=== PATIENT | male | born 1985 ===

== ENCOUNTER 2018-07-02 01:07 | Observation (INO) ==
[2018-07-02] MEDS ORDERED: Ondansetron 4 MG/2 ML VIAL IVP PRN (02:39)
[2018-07-02] MEDS ORDERED: Caffeine/Sodium Benzoate 500 MG in 0.9 % Sodium Chloride 1,000 ML IV PRN (03:00)
[2018-07-02] MEDS: *HR* OxyCODONE Immed Rel 5 MG TABLET PO PRN ×3 (03:42→18:16)
[2018-07-02] MEDS: Ringers Solution, Lactated 1,000 ML IVC SCH ×2 (06:10→20:07)
[2018-07-02] MEDS ORDERED: CeFAZolin Syr 2,000MG/20 ML 2,000 MG/20 ML SYRINGE IVPB ONE (08:00)
[2018-07-02 08:29] LABS: Basophils % 0.3 %; Eosinophils # 0.1 K/mcL (0.0-0.6); Hematocrit 40.3 % (37.5-50.1); Hemoglobin 14.4 g/dL (12.9-16.9); Immature Granulocytes % 0.1 % (0-4); Lymphocytes # 2.2 K/mcL (0.6-4.6); Mean Corpuscular HGB Conc 35.7 g/dL (31.6-35.5); Mean Corpuscular Hemoglobin 31.6 pg (28.0-33.3); Mean Corpuscular Volume 88.6 fL (83.0-100.0); Mean Platelet Volume 9.7 fL (9.4-12.4); Monocytes # 0.5 K/mcL (0.0-1.3); Monocytes % 7.8 %; Neutrophils # 3.9 K/mcL (1.6-8.9); Platelet Count 172 K/mcL (140-400); Red Blood Count 4.55 M/mcL (4.19-5.50); Red Cell Distribution Width 11.1 % (11.5-14.5); Segmented Neutrophils % 57.8 %
[2018-07-02] MEDS: Gabapentin 400 MG CAPSULE PO SCH ×3 (08:39→20:24)
--- NOTE | 2018-07-02 08:47 | Orthopedic History & Physical ---
Date of Encounter: 07/02/18 Time of Encounter: 09:30 Assessment and Plan (1) Wound drainage Current visit: Yes Status: Acute (2) Headache Current visit: Yes Status: Acute Qualifiers: Headache type: unspecified Headache chronicity pattern: acute headache Intractability: intractable Qualified Code(s): R51 - Headache (3) Status post lumbar microdiscectomy Current visit: Yes Status: Acute History of Present Illness Chief complaint: headache, wound drainage HPI: Mr. Arndt is a 33 year old male presenting to [facility] with severe headache, blurred vision and wound drainage s/p Microdiscectomy L5-S1 left by Dr. Baker on 06/23/18 for lumbar disc herniation and lumbar radiculopathy. He developed what was deemed a spinal headache postoperatively which extended his stay inpatient. This resolved spontaneously after administration of caffeine IV on POD#3 and was discharged home with mild residual left lower extremity preoperative symptoms. He denies any recent falls or trauma. States came back suddenly as immediately postop and is now sensitive to sensory stimuli. Admits to increased pain to the LLE. On exam patient resting supine in bed with HOB elevated appx 30deg. Alert and oriented, converses easily and clearly. Cranial nerves grossly noted to be intact. Fires all upper and lower motor neurons as expected. Neurovascularly intact to all limbs. No weakness noted on exam Discussed with Dr. Baker Likely seroma formation with spinal headache NPO midnight Plan for closure of lumbar seroma 07/03 Minimize sensory input with keeping blinds closed, tv off, minimize loud noises. Patient verbalized understanding. Pain medication as needed Keep HOB no greater than 30deg elevation Frequent neuro checks Notify Dr. Baker of any sudden deviations in patient's symptoms Past Med Surg Social Fam HX - Past Medical History Medical history: asthma, other Additional medical history: lumbar disc herniation, lumbar radiculopathy. tobacco dependency. depression Psychiatric history: no psych history - Past Surgical History Additional surgical history: tubes placed in side as infant due to being premature - Social History Smoking Status: Current every day smoker Smokeless Tobacco Status: No Alcohol use: rarely Drug use: none - Family History Father Family Member Ethnicity: Non- Living Status: Still Living Hx Family Cardiac Disorders: No Hx Family Respiratory Disorders: No Hx Family Cancer: No Hx Family GI Disorders: No Hx Family Endocrine Disorder: No Hx Family Neuromuscular Disorders: No Hx Family Neurologic Disorders: No Hx Family HEENT Disorders: No Hx Family Autoimmune Disorders: No (psoriasis) Medications and Allergies RX: Gabapentin [Neurontin] 400 mg PO TID 06/23/18 [History] RX: Meloxicam 7.5 mg PO BID PRN 06/23/18 [History] Allergy/AdvReac Type Severity Reaction Status Date / Time shellfish derived Allergy Anaphylaxis Verified 06/23/18 09:26 All Systems Reviewed: The remainder of the systems were reviewed and are negative Physical Exam - Constitutional Vitals: Temp Pulse Resp BP Pulse Ox 98.3 F 74 16 136/85 99 07/02/18 06:45 07/02/18 06:45 07/02/18 06:45 07/02/18 06:45 07/02/18 06:45 Results - Labs Result Diagrams: 07/02/18 07:56 07/02/18 07:56 Labs: Abnormal lab results MCHC 35.7 g/dL (31.6-35.5) H 07/02/18 07:56 RDW 11.1 % (11.5-14.5) L 07/02/18 07:56 H & H 07/02/18 Range/Units 07:56 Hgb 14.4 (12.9-16.9) g/dL Hct 40.3 (37.5-50.1) % All other labs normal.
[2018-07-02 08:51] LABS: BUN/Creatinine Ratio 12 (6-26); Blood Urea Nitrogen 11 mg/dL (6-20); Calcium 8.8 mg/dL (8.6-10.3); Carbon Dioxide 27 mEq/L (23-29); Chloride 107 mEq/L (98-107); Glucose 91 mg/dL (70-105); Osmolality,Calculated 285 (280-300); Potassium 4.2 mEq/L (3.5-5.1); Sodium 138 mEq/L (136-145); eGFR For Non-African Americans > 60 (> 60)
--- NOTE | 2018-07-02 17:04 | Anesthesia Evaluation PreOp ---
Addendum entered and electronically signed by Brenda Kraus MD 07/03/18 14:57: Vital Signs Temp Pulse Resp BP Pulse Ox 07/03/18 12:38 98.2 F 73 16 101/59 97 07/03/18 10:30 119/78 07/03/18 08:07 98.1 F 67 16 98/63 95 07/03/18 06:25 98.6 F 74 16 104/68 97 07/03/18 03:58 98.6 F 66 17 100/66 96 07/02/18 22:59 98.5 F 64 16 112/74 98 07/02/18 18:40 98.6 F 84 16 101/62 97 07/02/18 17:30 98.2 F 84 16 126/70 99 Addendum entered and electronically signed by Mundo Poe DO 07/02/18 21:09: Patient Edentulous Original Note: Date of Encounter: 07/02/18 Time of Encounter: 17:01 - Past History Planned Operation: Closure Lumbar Seroma Cardiac History: Denies any Significant Hx Pulmonary History: Smoker, Pack/yr (1/2 ppd) AUDIO VISUAL TECH History: Denies Any Significant HX Other Medical History: Denies Any Significant HX Anesthesia History: No Prior Anesthetic Complications, Past Anesthesia (microdiscectomy L5-S1) Alcohol Use: rarely Drug use: none Medications and Allergies Gabapentin [Neurontin] 400 mg PO TID 06/23/18 [History] Meloxicam 7.5 mg PO BID PRN 06/23/18 [History] Allergy/AdvReac Type Severity Reaction Status Date / Time shellfish derived Allergy Anaphylaxis Verified 06/23/18 09:26 - Meds/Allergy Pre-op Review Medications Reviewed: Yes Allergies Reviewed: Yes Beta Blockers on Current Med List: No Anesthesia Results - Labs 07/02/18 07:56 07/02/18 07:56 Anesthesia Exam Vital Signs/O2 Sat, Most Current Temp Pulse Resp BP Pulse Ox 98.7 F 78 16 134/87 98 07/02/18 09:50 07/02/18 09:50 07/02/18 09:50 07/02/18 09:50 07/02/18 09:50 NPO (# of Hours): > 8 hrs Pain Scale: 0 Pain Scale Used: Numeric (1 - 10) - HEENT Pupil (Motor): Pupils equal, EOMI Mallampati: II Teeth: Normal Oral Opening: Greater than 3 - AUDIO VISUAL TECH LOC: Oriented AUDIO VISUAL TECH Motor: Normal RUE, Normal LUE, Normal RLE, Normal LLE, Normal Face AUDIO VISUAL TECH Sensory: Normal: RUE, LUE, RLE, LLE, Face - Cardiac Rhythm: Regular Murmur: None JVD: No Carotid Bruit: No - Pulmonary Breath Sounds: bilateral Clear Respiratory Effort: Symmetrical Anesthesia Assess/Plan ASA Score: 2 Level of consciousness: Cooperative Anesthetic Plan: General Autologous Blood: Yes Monitoring Plan: Standard Monitors Recovery Plan: PACU
[2018-07-03] MEDS: Ringers Solution, Lactated 1,000 ML IVC SCH (05:50)
[2018-07-03] MEDS: *HR* OxyCODONE Immed Rel 5 MG TABLET PO PRN ×2 (10:27→21:49)
[2018-07-03] MEDS: Gabapentin 400 MG CAPSULE PO SCH ×3 (10:27→21:49)
[2018-07-03] MEDS ORDERED: Bacitracin 50,000 UNIT, Polymyxin B Sulfate 500,000 UNIT, Sodium Chloride IRRigation 1,... IR ONE (17:30)
[2018-07-03] MEDS ORDERED: Vancomycin 1,000 MG VIAL ONE (18:10)
[2018-07-03] MEDS ORDERED: *HR* FentaNYL (PF) 100 MCG/2 ML VIAL ONE ×2 (18:25→19:08)
[2018-07-03] MEDS ORDERED: Dexamethasone 4 MG/ML VIAL ONE (18:25)
[2018-07-03] MEDS ORDERED: Lidocaine -MPF 2% 2 ML VIAL ONE (18:25)
[2018-07-03] MEDS ORDERED: *HR* Midazolam HCl 2 MG/2 ML VIAL ONE (18:25)
[2018-07-03] MEDS ORDERED: Ondansetron 4 MG/2 ML VIAL ONE (18:25)
[2018-07-03] MEDS ORDERED: *HR* Propofol 200 MG/20 ML VIAL IVP ONE (18:25)
[2018-07-03] MEDS ORDERED: *HR* Rocuronium Bromide 50 MG/5 ML VIAL ONE (18:25)
[2018-07-03] MEDS ORDERED: Lidocaine -MPF 4% 5 ML AMPUL ONE (18:29)
[2018-07-03] MEDS ORDERED: Neostigmine Methylsulfate 3 MG/3 ML SYRINGE ONE (19:13)
[2018-07-03] MEDS ORDERED: *HR* Promethazine 25 MG/ML VIAL IVP PRN (19:15)
[2018-07-03] MEDS ORDERED: *HR* HYDROmorphone (PF) 1 MG/ML SYRINGE IVP PRN (19:15)
[2018-07-03] MEDS ORDERED: Ondansetron 4 MG/2 ML VIAL IVP ONE (19:15)
[2018-07-03] MEDS ORDERED: *HR* OxyCODONE Immed Rel 5 MG TABLET PO PRN (19:15)
[2018-07-03] MEDS ORDERED: *HR* Labetalol 20 MG/4 ML SYRINGE IVP PRN (19:15)
--- NOTE | 2018-07-03 20:03 | Orthopedic Operative Note ---
Date of procedure: 07/03/18 Pre-op diagnosis: Lumbar wound seroma Post-op diagnosis: same Operation/Findings: Closure lumbar seroma: The patient was brought to the operative theater where he underwent general endotracheal anesthesia. He was given antibiotics prior to the start of the procedure. Compression boots and stockings were used for deep vein thrombosis prophylaxis. The patient was placed prone on a Henrry table. The back was prepped and draped in the usual sterile fashion. We exposed the midline incision that was previously utilized. There was a small amount of serous drainage in the subcutaneous area. This was evacuated with suction. We did not see an active CSF leak from the thecal sac. We placed DuraGen and DuraSeal over the exposed thecal sac and then closed the wound in a watertight closure in layers with 1 Vicryl for the fascia, 20 for the subcutaneous tissue, and interrupted 3-0 nylon sutures were used for skin. Sterile dressings were placed over the wound, the patient was turned supine in a hospital bed, and was extubated in the operative theater. All sponge needles and instrument counts were correct at the end of the procedure. The patient tolerated the procedure well without complications. Anesthesia: KALI Surgeon: Jeffry Baker Jr Was there an mailing machine assistant present: No Estimated blood loss (cc): 3 Specimen: None Condition: stable Disposition: PACU
--- NOTE | 2018-07-03 20:46 | Anesthesia Evaluation Post Op ---
Date of Encounter: 07/03/18 Time of Encounter: 20:45 - Vital Signs Vital Signs: Vital Signs/O2 Sat, Most Current Temp Pulse Resp BP Pulse Ox 97.7 F 58 14 114/70 98 07/03/18 20:45 07/03/18 20:45 07/03/18 20:45 07/03/18 20:45 07/03/18 20:45 - Lungs Lungs: Clear Ascult./Percussion - Airway Airway: Non-obstructed - Cardiovascular Regular Rate - Mental Status Mental Status: Alert & Oriented, Answers Appropriately - Pain Pain Scale: 0 Pain Scale used: Numeric (1 - 10) - Nausea Vomiting Nausea Vomiting: Not Present - Hydration Hydration: Ice chips, Has not voided - Discharge PostOp Status: Transfer Patient to floor
[2018-07-03] MEDS ORDERED: Ondansetron 4 MG/2 ML VIAL IVP PRN (20:59)
[2018-07-03] MEDS ORDERED: *HR* HYDROcodone/Acet 5/325 mg TABLET PO PRN (20:59)
[2018-07-03] MEDS ORDERED: Naloxone 0.4 MG/ML INJ IVP PRN (20:59)
[2018-07-03] MEDS ORDERED: Acetaminophen 325 MG TABLET PO PRN (20:59)
[2018-07-04] MEDS: *HR* OxyCODONE Immed Rel 5 MG TABLET PO PRN ×2 (07:53→23:09)
[2018-07-04] MEDS: Gabapentin 400 MG CAPSULE PO SCH ×3 (09:33→20:56)
--- NOTE | 2018-07-04 18:31 | Orthopedics Progress Note ---
Date of Encounter: 07/04/18 Time of Encounter: 09:00 - Assessment and Plan (1) Wound drainage Current Visit: Yes Status: Resolved (2) Headache Current Visit: Yes Status: Resolved Qualifiers: Headache type: unspecified Headache chronicity pattern: acute headache Intractability: intractable Qualified Code(s): R51 - Headache (3) Status post lumbar microdiscectomy Current Visit: Yes Status: Acute (4) Seroma after procedure Current Visit: Yes Status: Resolved Subjective Principal diagnosis: s/p lumbar surgery Interval history: Mr. Arndt is a 33 year old male Date of procedure: 07/03/18 Pre-op diagnosis: Lumbar wound seroma Post-op diagnosis: same Operation/Findings: Closure lumbar seroma The patient is without complaints. Vitals reviewed. Dressing is clean dry and intact. Neurovascularly intact with regard to bilateral lower extremities. Fires all upper and lower extremity motor groups. Assessment :stable. Plan mobilize ,continue analgesics, discharge planning - monitor patient through the day for improvement in function. Plan for discharge 07/05 Patient status discussed with Dr. Baker. Objective Vital signs: Vital Signs Temp Pulse Resp BP Pulse Ox 07/04/18 14:47 98.1 F 90 16 108/54 96 07/04/18 12:00 98.8 F 88 17 107/62 95 07/04/18 10:38 97.5 F L 102 16 122/84 94 07/04/18 08:26 98.2 F 84 14 106/62 99 07/04/18 08:15 98.4 F 82 16 112/68 96 07/04/18 05:03 98.0 F 86 15 107/69 99 07/04/18 01:10 80 16 108/69 95 07/04/18 00:10 79 16 105/69 94 07/03/18 23:10 81 16 106/64 95 07/03/18 22:40 79 16 111/73 97 07/03/18 22:10 76 16 113/70 97 07/03/18 21:55 79 16 127/85 99 07/03/18 21:40 97.2 F L 77 16 119/78 99 07/03/18 20:45 97.7 F 58 14 114/70 98 07/03/18 20:35 71 14 122/72 98 07/03/18 20:25 59 12 121/70 99 07/03/18 20:15 97.5 F L 57 18 119/71 100 Intake and Output 07/04/18 07/04/18 07/04/18 07:59 15:59 23:59 Intake Total 100 / 100 1080 / 1080 Output Total 2600 / 2600 550 / 550 Balance -2500 / -2500 530 / 530 Intake: IV Fluids 100 / 100 Ancef 2,000 MG In 0.9 % Sodium 100 / 100 Chloride 100 ML @ 200 mls/hr IVPB Q8HR STEVEN Rx#:[id number] Oral 1080 / 1080 Output: Urine 2600 / 2600 550 / 550 Other: Meal Lunch Percent of Meal Consumed 100% # Voids 2 - Labs CBC & BMP: 07/02/18 07:56 07/02/18 07:56 Labs: Abnormal lab results MCHC 35.7 g/dL (31.6-35.5) H 07/02/18 07:56 RDW 11.1 % (11.5-14.5) L 07/02/18 07:56 Consult Discharge Plan - Plan Referrals: Ruma Jones, ASSOCIATE PROF[employer] [Primary Care Provider] -
[2018-07-05] MEDS: Ringers Solution, Lactated 1,000 ML IVC SCH ×4 (01:03→03:23)
[2018-07-05 08:40] VITALS: BP 109/78
[2018-07-05] MEDS: Gabapentin 400 MG CAPSULE PO SCH (08:46)
--- NOTE | 2018-07-05 11:04 | Discharge Summary ---
- NOTES TO OUTPATIENT PROVIDER Notes to Outpatient Provider: Follow Up in spine Center in 2 weeks Date of Encounter: 07/05/18 Time of Encounter: 11:02 - Hospital Course Hospital course: Mr. Arndt is a 33 year old male who had lumbar wound drainage consistent with seroma and was admitted for definitive management. He had closure of his lumbar seroma. The patient had an uneventful postoperative course. Progressed from intravenous analgesic needs to oral analgesic needs only. Remained neurovascularly intact and mobilized satisfactorily. All intraoperative and/or postoperative radiographic studies were satisfactory. Patient is discharged with plan for rehabilitation and follow-up in 2 weeks post discharge on analgesic medication and patient's home medications. - Time Spent with Patient Total time spent providing and/or coordinating discharge services: - Discharge Medications Prescriptions: No Action Meloxicam 7.5 mg PO BID PRN PRN Reason: Pain Gabapentin [Neurontin] 400 mg PO TID Home Medications: Gabapentin [Neurontin] 400 mg PO TID 06/23/18 [History] Meloxicam 7.5 mg PO BID PRN 06/23/18 [History] Allergies/Adverse Reactions: Allergy/AdvReac Type Severity Reaction Status Date / Time shellfish derived Allergy Anaphylaxis Verified 06/23/18 09:26 Date of admission: 07/02/18 02:23 Primary care physician: Ruma Jones, Consults: 07/03/18 20:59 Consult to Nurse Navigator [CONS] Routine Comment: spine navigator Consult to Physical Therapy [CONS] Routine Comment: Evaluate, develop and implement POC Reason for Consult: Postoperative rehabilitation Does patient have active BEDREST order?: No Is patient medically & hemodynamically stable?: Yes Patient assessed for mobility or mobilized this visit?: No - Patient Status Disposition: Home, Self-Care Condition: Good Functional capacity at discharge: independent ambulation Overall status at discharge: patient is progressing back to baseline - Discharge Instructions Follow Up With: Ruma Jones CNP [Primary Care Provider] - - Diet and Activity Activity: as per physical therapy Diet: advance to your usual diet
== END 2018-07-05 13:46 | disposition home or self-care (01) ==
LOC: 3NENU
PROVIDERS: ADMIT Orthopaedic Surgery Orthopaedic Surgery of the Spine; ATTEND Orthopaedic Surgery Orthopaedic Surgery of the Spine

== ENCOUNTER 2018-07-21 02:08 | Inpatient (IN) ==
[2018-07-21] MEDS ORDERED: Naloxone 0.4 MG/ML INJ IVP PRN (05:14)
--- NOTE | 2018-07-21 05:15 | Internal Med History&Physical ---
<Martin Hill - Last Filed: 07/21/18 06:34> Date of Encounter: 07/21/18 Time of Encounter: 05:00 Internal Medicine - H&P: HPI Chief complaint: headache and back pain History of present illness: Mr. Arndt is a 33 year old male has performed by [facility] ED because postoperative complications. Most of the information was obtained from the packet sent from [facility]. He presented to the [facility] ED complaining of headache, nausea, back pain and pain down his legs. He was also having difficulty ambulating due to leg pain with decrease in sensation to bilateral legs (left more than right.) Patient denied any chest pain, shortness of breath, numbness or tingling, vomiting, bladder or bowel incontinence Prior to this admission, patient had presented to [facility] on 07/02/18 with symptoms of severe headache, blurred vision and wound drainage status post microdiscectomy of L5-S1 on 06/23/2018. The headache back then has resolved spontaneously after administration of caffeine IV on postoperative day 3, and was discharged home with residual low extremity preoperative symptoms. He was also found to have low seroma formation and underwent closure of lumbar seroma on 07/03 . Workup in the ED showed patient the white blood count 15.2,Neutrophils : 13, Monocytes 1.26. CRP: 17.4, Lactic acid initially was 2.1 but repeat was WNL, . Patient had normal electrolytes. CT abdominal /pelvis showed two collection in the lumbar surgical bed with concerns for abscess. He was given vancomycin and Zosyn in the ED. He received Dilaudid and Toradol in the ED for pain control and was sent to [facility] for further management Past Med Surg Social Fam HX - Past Medical History Medical history: asthma, other Additional medical history: lumbar disc herniation, lumbar radiculopathy. tobacco dependency. depression Psychiatric history: no psych history - Past Surgical History Surgical History: other Additional surgical history: tubes placed in side as infant due to being premature - Social History Smoking Status: Current every day smoker Smokeless Tobacco Status: No Alcohol use: rarely Drug use: none - Family History Father Family Member Ethnicity: Non- Living Status: Still Living Hx Family Cardiac Disorders: No Hx Family Respiratory Disorders: No Hx Family Cancer: No Hx Family GI Disorders: No Hx Family Endocrine Disorder: No Hx Family Neuromuscular Disorders: No Hx Family Neurologic Disorders: No Hx Family HEENT Disorders: No Hx Family Autoimmune Disorders: No (psoriasis) Internal Medicine - H&P: Meds Gabapentin [Neurontin] 400 mg PO TID 06/23/18 [History] Meloxicam 7.5 mg PO BID PRN 06/23/18 [History] Allergy/AdvReac Type Severity Reaction Status Date / Time shellfish derived Allergy Anaphylaxis Verified 06/23/18 09:26 All Systems PM: A 10-system review of systems was performed and is negative for pertinent findings except as documented above in the HPI. - Constitutional Constitutional: no fever(s) - EENT Eyes: photophobia, no change in vision Nose, mouth and throat: neck pain - Cardiovascular Cardiovascular ROS IM: no chest pain - Respiratory Respiratory: no dyspnea - Gastrointestinal Gastrointestinal: no abdominal pain - Musculoskeletal Musculoskeletal ROS IM: back pain - Constitutional Vitals: Temp Pulse Resp BP Pulse Ox 99.6 F 98 12 105/65 96 07/21/18 04:04 07/21/18 04:04 07/21/18 04:04 07/21/18 04:04 07/21/18 04:04 Exam: Gen.: Vitals noted. In distress. Alert, awake and oriented * 3 [address], place, and time, HEENT: oropharynx clear, Normocephalic, atraumatic, MMM Neck: tender to palpation, no JVD, no lymphadenopathy, no carotid bruit. Cardiac: RRR, no murmur, +S1/S2, No BLE edema, PMI non-displaced Pulmonary: CTA bilaterally, no wheezes, rales or rhonchi, equal chest expansion, unlabored breathing Abdomen: soft, nontender, BS noted, no guarding, mildly distended. No organomegaly, no pulsatile masses, Skin: warm, non-tender, drainage from surgical wound on the back MSK: Not able to assess his range of motion because of back and neck pain Neuro: decreased sensation to lower extremities Psych: could not assess mentation because patient was somnolent. - Assessment and Plan (1) Meningitis Current Visit: Yes Status: Acute Assessment and plan: -Secondary to postoperative complications. Patient recently underwent lumbar wound drainage consistent with seroma and had closure of his lumbar seroma. - Prior to that, patient underwent microdiscectomy L5-S1 by Dr. Baker on 06/23/18. -Patient presented to the [facility] ED complaining of headache, nausea, back pain and pain down his legs. - CT abdominal pelvis with contrast showed two collections lumbar surgical bed with concerns for abscess. -on physical exam patient was tender to flexion and lateral recumbent position. Patient was not able to co-operate with the Kernig and Brudzinski test . -Patient received vancomycin and Zosyn in the ED at [facility]. He also received the Dilaudid and Toradol for pain control. PLAN: - 10mg q6h dexamethasone , IV vancomycin, Ceftraoxone and Acyclovir - q4 h neuro checks , droplet precautions -Consult to Neurology for potential LP (2) History of recent surgery Current Visit: Yes Status: Acute Assessment and plan: -Patient underwent microdiscectomy L5-S1 by Dr. Baker on 06/23/18 -Patient recently underwent lumbar wound drainage consistent with seroma and had closure of his lumbar seroma. -Dr. Baker has been updated about his condition. (3) Nausea & vomiting Current Visit: Yes Status: Acute Assessment and plan: Patient presented to the ED with complaints of nausea and vomiting. Currently on Zofran 4mg IVP PRN (QTc : 373 on most recent EKG) Qualifiers: Qualified Code(s): R11.2 - Nausea with vomiting, unspecified (4) Nicotine dependence Current Visit: Yes Status: Acute Assessment and plan: Hx of nicotine use On nicotine patch PRN Qualifiers: Qualified Code(s): F17.200 - Nicotine dependence, unspecified, uncomplicated (5) DVT prophylaxis Current Visit: Yes Status: Acute Assessment and plan: epcds - Time Spent With Patient Total time spent is greater than 50% in coordination of care (as documented) at patient's floor/unit and/or counseling patient: <Bimal Mao - Last Filed: 07/21/18 08:09> Date of Encounter: 07/21/18 Internal Medicine - H&P: HPI History of present illness: Mr. Arndt is a 33 year old male All Systems PM: A 10-system review of systems was performed and is negative for pertinent findings except as documented above in the HPI. - Constitutional Vitals: Temp Pulse Resp BP Pulse Ox 100.0 F H 107 20 120/69 96 07/21/18 06:40 07/21/18 06:40 07/21/18 06:40 07/21/18 06:40 07/21/18 06:40 Internal Med - H&P Results - Labs CBC & Chem 7: 07/21/18 06:31 07/21/18 06:31 Labs: Short CBC 07/21/18 Range/Units 06:31 WBC 18.5 H (4.3-11.1) K/mcL Hgb 14.4 (12.9-16.9) g/dL Hct 40.5 (37.5-50.1) % Plt Count 165 (140-400) K/mcL BMP 07/21/18 06:31 Sodium 131 L Potassium 3.8 Chloride 99 Carbon Dioxide 23 BUN 13 Creatinine 1.06 Glucose 218 H Calcium 9.1 Liver Function 07/21/18 Range/Units 06:31 Total Bilirubin 1.4 H (0.3-1.0) mg/dL AST 10 L (13-39) Units/L ALT 8 (7-52) Units/L Alkaline Phosphatase 66 (34-104) Units/L Albumin 4.1 (3.5-5.7) g/dL - Time Spent With Patient Total time spent is greater than 50% in coordination of care (as documented) at patient's floor/unit and/or counseling patient: - Attending Attestation I was present with resident during the history and exam. I discussed the case with the resident and agree with the findings and plan as documented in the residents note. Patient seen on 07/21/18. concern for meningitis. Patient had rec ent surgery on spine. Presents with photophobia and nucal rigidity. Dr. Doshi called by ER prior to transfer, will see in the morning. Patient would likely benefit from LP, neurology consulted as well. Follow up recommendations. Antibiotics, antivirals and steroids started. Will continue to monitor closely.
[2018-07-21] MEDS: Acyclovir 750 MG in D5% in Water 250 ML IVPB SCH ×2 (05:26→14:39)
[2018-07-21] MEDS: Dexamethasone 10 MG/ML VIAL IVP SCH ×3 (05:35→18:32)
[2018-07-21] MEDS ORDERED: Nicotine 21 MG PATCH.TD24 TD PRN (06:10)
[2018-07-21 07:12] LABS: Hematocrit 40.5 % (37.5-50.1); Hemoglobin 14.4 g/dL (12.9-16.9); Mean Corpuscular HGB Conc 35.6 g/dL (31.6-35.5); Mean Corpuscular Hemoglobin 31.1 pg (28.0-33.3); Mean Corpuscular Volume 87.5 fL (83.0-100.0); Mean Platelet Volume 10.5 fL (9.4-12.4); Platelet Count 165 K/mcL (140-400); Red Blood Count 4.63 M/mcL (4.19-5.50); Red Cell Distribution Width 11.1 % (11.5-14.5)
[2018-07-21 07:14] LABS: INR 1.4; Prothrombin Time 15.9 Seconds (9.4-12.1)
[2018-07-21 07:22] LABS: Alanine Aminotransferase 8 Units/L (7-52); Albumin 4.1 g/dL (3.5-5.7); Albumin/Globulin Ratio 1.5 (1.1-2.2); Alkaline Phosphatase 66 Units/L (34-104); Aspartate Amino Transferase 10 Units/L (13-39); BUN/Creatinine Ratio 12 (6-26); Bilirubin,Total 1.4 mg/dL (0.3-1.0); Blood Urea Nitrogen 13 mg/dL (6-20); Calcium 9.1 mg/dL (8.6-10.3); Carbon Dioxide 23 mEq/L (23-29); Chloride 99 mEq/L (98-107); Globulin 2.7 g/dL (2.4-3.5); Glucose 218 mg/dL (70-105); Magnesium 1.7 mg/dL (1.6-2.6); Osmolality,Calculated 279 (280-300); Phosphorous 1.9 mg/dL (2.7-4.5); Potassium 3.8 mEq/L (3.5-5.1); Sodium 131 mEq/L (136-145); Total Protein 6.8 g/dL (6.4-8.9); eGFR For Non-African Americans > 60 (> 60)
--- NOTE | 2018-07-21 08:19 | Orthopedic Consult Note ---
Date of Encounter: 07/21/18 Time of Encounter: 08:45 Assessment and Plan (1) Wound drainage Current Visit: Yes Status: Acute (2) Headache Current Visit: Yes Status: Acute Qualifiers: Headache type: unspecified Headache chronicity pattern: acute headache Intractability: intractable Qualified Code(s): R51 - Headache (3) History of recent surgery Current Visit: Yes Status: Acute (4) Nausea & vomiting Current Visit: Yes Status: Acute Qualifiers: Vomiting type: unspecified Vomiting Intractability: unspecified Qualified Code(s): R11.2 - Nausea with vomiting, unspecified (5) Nicotine dependence Current Visit: Yes Status: Chronic Qualifiers: Nicotine product type: unspecified Substance use status: unspecified nicotine-induced disorder Qualified Code(s): F17.209 - Nicotine dependence, unspecified, with unspecified nicotine-induced disorders (6) Status post lumbar microdiscectomy Current Visit: No Status: Acute (7) Lumbar radiculopathy Current Visit: No Status: Chronic History of Present Illness Chief complaint: headache, back pain HPI: Mr. Arndt is a 33 year old male presenting for severely worsening headache and general feeling of unwell. Patient is s/p microdiscectomy L5-S1 on 06/23. Patient developed spinal headache which resolved on POD#3 after caffeine adminstration. Patient then developed return of symptoms and found to have seroma and was admitted on 07/02 and underw ent lumbar closure 07/[address] Baker. Patient had been doing very well and presented to outpatient follow up on 07/15 with appropriate wound healing and removal of sutures. Patient again began experiencing headache on 07/[address] Baker. Patient presented to [facility] ED on 07/20 and was transferred to [facility] for management. Patient was noted to have elevated WBC count at [facility]. Patient c/o severe headache, nausea, severe back pain, paresthesias to LLE rapidly worsening per patient. Patient now noted to have tachypnea, tachycardia, fever, and leukocytosis. Patient seen at bedside. Lights noted to be off. Patient noted to be right side decubitus position with arms surrounding and clutching head and belching. Patient slow to respond with speech. Oriented x 3 however noted to be moaning and again, slow to respond to questioning. This is a significant departure from previous presentations. Patient with no calf tenderness bilaterally. Neurovascularly intact all extremities. Incision inspected with bloody and suppurative drainage. Erythema surrounding mid incision with warmth and exquisite tenderness about the mid incision. Discussed with Dr. Baker. Significant concern for infectious origin with possible CSF involvement given patient's severe headache and sensory sensitivity to light and sound. Incision very concerning given CT findings of lumbar fluid collections. Discussed possible LP vs IR aspiration for evaluation, however, with patient's rapidly worsening clinical picture and increasing leukocytosis foremost concern for CSF/meningeal involvement. As neurosurgery services not presently available at [facility], Dr. Baker recommending transfer to [facility] for management with Neurosurgery involvement. Dr. Duckworth's resident, Dr. Roberson, as well as, Sara Medeiros CNP infectious disease, and Negro Akhtar CNP Neurology updated with Dr. Baker's recommendation and Dr. Duckworth states proceeding with transfer orders. Past Med Surg Social Fam HX - Past Medical History Medical history: asthma, other Additional medical history: lumbar disc herniation, lumbar radiculopathy. 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 depression Psychiatric history: no psych history - Past Surgical History Surgical History: other Additional surgical history: tubes placed in side as infant due to being premature - Social History Smoking Status: Current every day smoker Smokeless Tobacco Status: No Alcohol use: rarely Drug use: none - Family History Father Family Member Ethnicity: Non- Living Status: Still Living Hx Family Cardiac Disorders: No Hx Family Respiratory Disorders: No Hx Family Cancer: No Hx Family GI Disorders: No Hx Family Endocrine Disorder: No Hx Family Neuromuscular Disorders: No Hx Family Neurologic Disorders: No Hx Family HEENT Disorders: No Hx Family Autoimmune Disorders: No (psoriasis) Medications and Allergies Gabapentin [Neurontin] 400 mg PO TID 06/23/18 [History] Meloxicam 7.5 mg PO BID PRN 06/23/18 [History] Allergy/AdvReac Type Severity Reaction Status Date / Time shellfish derived Allergy Anaphylaxis Verified 06/23/18 09:26 All Systems Reviewed: The remainder of the systems were reviewed and are negative Physical Exam - Constitutional Vitals: Temp Pulse Resp BP Pulse Ox 100.0 F H 107 20 120/69 96 07/21/18 06:40 07/21/18 06:40 07/21/18 06:40 07/21/18 06:40 07/21/18 06:40 Results - Labs Result Diagrams: 07/21/18 06:31 07/21/18 06:31 Labs: Abnormal lab results WBC 18.5 K/mcL (4.3-11.1) H 07/21/18 06:31 MCHC 35.6 g/dL (31.6-35.5) H 07/21/18 06:31 RDW 11.1 % (11.5-14.5) L 07/21/18 06:31 PT 15.9 Seconds (9.4-12.1) H 07/21/18 06:31 Sodium 131 mEq/L (136-145) L 07/21/18 06:31 Glucose 218 mg/dL (70-105) H 07/21/18 06:31 279 (280-300) L 07/21/18 06:31 Phosphorus 1.9 mg/dL (2.7-4.5) L 07/21/18 06:31 1.4 mg/dL (0.3-1.0) H 07/21/18 06:31 AST 10 Units/L (13-39) L 07/21/18 06:31 H & H 07/21/18 Range/Units 06:31 Hgb 14.4 (12.9-16.9) g/dL Hct 40.5 (37.5-50.1) % All other labs normal. Consult Discharge Plan - Plan Referrals: Ruma Jones CNP [Primary Care Provider] -
[2018-07-21] MEDS: cefTRIAXone 2,000 MG in Water for inj. (sterile) 20 ML 20 ML IVP SCH ×2 (08:44→20:15)
[2018-07-21 09:30] LABS: Basophils % 0.2 %; Immature Granulocytes % 0.7 % (0-4); Lymphocytes # 0.4 K/mcL (0.6-4.6); Lymphocytes % 2.3 %; Monocytes # 1.1 K/mcL (0.0-1.3); Monocytes % 5.9 %; Segmented Neutrophils % 90.9 %
[2018-07-21] MEDS ORDERED: Ketorolac 30 MG/ML VIAL IVP ONE ×2 (09:36→18:28)
[2018-07-21] MEDS ORDERED: *HR* Promethazine 25 MG/ML VIAL IVP ONE (09:37)
--- NOTE | 2018-07-21 09:37 | Electrocardiograph Report ---
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
--- NOTE | 2018-07-21 09:53 | Discharge Summary ---
<Jaya Roberson - Last Filed: 07/21/18 09:51> Date of Encounter: 07/21/18 Time of Encounter: 09:35 - Discharge Diagnosis (1) Meningitis Priority: Primary Status: Acute (2) History of recent surgery Priority: Secondary Status: Acute (3) Nausea & vomiting Priority: Secondary Status: Acute Qualifiers: Qualified Code(s): R11.2 - Nausea with vomiting, unspecified Hospital course: Mr. Arndt is a 33 year old male with recent history of L5-S1 microdiscectomy on 06/23/18 complicated by lumbar seroma with decompression on 07/04/18 who presented to [facility] ED with headache, nausea, severe back pain running down his legs in the late evening yesterday and was subsequently transferred to [facility] for admission. There is immediate concern for postsurgical meningitis as a complication of surgery. The patient was noted to have purulent drainage and met sepsis criteria with elevated white count, as well as fever, tachycardia and tachypnea. Neurology was consulted for LP which is pending. He was immediately started on broad spectrum antibiotics, antivirals and dexamethasone. Orthopedic surgery was consulted and Dr. Baker recommended that the patient be transferred to [facility] for consultation with neurolo gical surgery. This was discussed with the patient and he agreed to be transferred at this time. Accepting physician pending. Discharge discussed with: patient, nurse, presales consultant - Time Spent with Patient Total time spent providing and/or coordinating discharge services: Time spent: Greater than 30 minutes - Discharge Medications Prescriptions: Continued Meloxicam 7.5 mg PO BID PRN PRN Reason: Pain Gabapentin [Neurontin] 400 mg PO TID Home Medications: Gabapentin [Neurontin] 400 mg PO TID 06/23/18 [History] Meloxicam 7.5 mg PO BID PRN 06/23/18 [History] Allergies/Adverse Reactions: Allergy/AdvReac Type Severity Reaction Status Date / Time shellfish derived Allergy Anaphylaxis Verified 06/23/18 09:26 Date of admission: 07/21/18 03:44 Primary care physician: Ruma Jones, Consults: 07/21/18 05:21 Consult to Neurology [CONS] Routine Consulting Provider: Neurology [facility] Reason for Consult: meninigitis Call Completed: No 07/21/18 06:09 Consult to Orthopedic Surgery [CONS] Routine Consulting Provider: Jeffry Baker Jr Reason for Consult: Possible meningitis post-op infection Call Completed: Yes 07/21/18 08:19 Consult to Infectious Diseases [CONS] Routine Consulting Provider: Infectious Disease [facility] Reason for Consult: symptomatic elevated white count Time Notified: 08:20 Call Completed: No Discharging clinician: Jaya Roberson Anticipated date of discharge: 07/21/18 - Constitutional Vitals: Temp Pulse Resp BP Pulse Ox 100.0 F H 107 20 120/69 94 07/21/18 06:40 07/21/18 06:40 07/21/18 06:40 07/21/18 06:40 07/21/18 08:39 Exam: Gen.: Vitals noted. In distress. Alert, awake and oriented * [address], and time, HEENT: oropharynx clear, Normocephalic, atraumatic, MMM Neck: tender to palpation, no JVD, no lymphadenopathy, no carotid bruit. Cardiac: RRR, no murmur, +S1/S2, No BLE edema, PMI non-displaced Pulmonary: CTA bilaterally, no wheezes, rales or rhonchi, equal chest expansion, unlabored breathing Abdomen: soft, nontender, BS noted, no guarding, mildly distended. No organomegaly, no pulsatile masses, Skin: warm, non-tender, drainage from surgical wound on the back MSK: Not able to assess his range of motion because of back and neck pain Neuro: decreased sensation to lower extremities Psych: could not assess mentation because patient was somnolent. - Patient Status Disposition: Transfer Other Condition: Serious Functional capacity at discharge: bed bound Overall status at discharge: patient is not back to baseline - Discharge Instructions Follow Up With: Ruma Jones CNP [Primary Care Provider] - - Diet and Activity Activity: return to work once cleared by your PCP/specialist <Hillary Duckworth - Last Filed: 07/21/18 12:17> Date of Encounter: 07/21/18 Time of Encounter: 09:30 - Discharge Diagnosis (1) Meningitis Status: Acute (2) History of recent surgery Status: Acute (3) Nausea & vomiting Status: Acute Qualifiers: Qualified Code(s): R11.2 - Nausea with vomiting, unspecified Hospital course: Mr. Mannering is a 33 year old male - Time Spent with Patient Total time spent providing and/or coordinating discharge services: Time spent: Less than 30 minutes (10 min) Date of admission: 07/21/18 03:44 Primary care physician: Ruma Jones, Consults: 07/21/18 05:21 Consult to Neurology [CONS] Routine Consulting Provider: Neurology [facility] Reason for Consult: meninigitis Call Completed: No 07/21/18 06:09 Consult to Orthopedic Surgery [CONS] Routine Consulting Provider: Jeffry Baker Jr Reason for Consult: Possible meningitis post-op infection Call Completed: Yes 07/21/18 08:19 Consult to Infectious Diseases [CONS] Routine Consulting Provider: Infectious Disease Alise Reason for Consult: symptomatic elevated white count Time Notified: 08:20 Call Completed: No - Constitutional Vitals: Temp Pulse Resp BP Pulse Ox 100.0 F H 107 20 120/69 94 07/21/18 06:40 07/21/18 06:40 07/21/18 06:40 07/21/18 06:40 07/21/18 08:39 - Attending Attestation I saw evaluated and examined this patient and my medical decision-making was re viewed with the Resident Physician, Jaya Roberson. I agree with the documented findings, disposition and treatment plan as described except to any changes set forth below. We independently had [id number] contact with the patient. Patient who recently underwent spine surgery that was complicated by lumbar seroma with decompression who was hospitalized here with suspicion of postsurgical meningitis. He was started on broad-spectrum antibiotics and evaluated by spine surgery today who recommended transfer to tertiary care Center for consultation with neurosurgery. Patient has been accepted at [facility] and will be transferred there once he has a bed available. In the meantime we are continuing IV antibiotics and treating his pain. On exam, he has photophobia, some nuchal rigidity and a severe headache. S1 and S2 are normal. Breath sounds are normal. Strenght normal in his lower extremities.
--- NOTE | 2018-07-21 10:54 | Neurology - Consult Note ---
Date of Encounter: 07/21/18 Time of Encounter: 10:50 Assessment and Plan (1) Meningitis Current Visit: Yes Status: Acute S/P lumbar discectomy Reporting fevers, severe headache, back pain and bilateral leg weakness Given presentation and recent surgical history there is concern for meningitis Currently on broad spectrum coverage, agree with continuing, on antivirals, agree with continuing Continue with pain control Continue dexamethasone Plan is for transfer to [facility]; transfer pending (2) Status post lumbar microdiscectomy Current Visit: No Status: Acute (3) Sepsis Current Visit: Yes Status: Acute SIRS X4 with elevated lactate, tachycardia, fevers, and leukocytosis Source: surgical incision; purulent drainage at incision site, with erythema along wound margins Organism: unknown- cultures pending on broad spectrum ABX cov; continue Concern for abscess along lumbar spine; CT imaging reveals fluid collection x2, has purulent drainage from incision transferring to [facility] for further monitoring and evaluation Qualifiers: Qualified Code(s): A41.9 - Sepsis, unspecified organism History of Present Illness Chief complaint: Concerns for meningitis as a result of surgical complication HPI: Mr. Arndt is a 33 year old male is a current daily smoker with a PMH of asthma. He presents to the ED with complaints of headache, nausea, back pain, bilateral leg weakness and numbness and reports that these are postoperative complications. He notes that on 06/23/18 he underwent a lumbar microdiscectomy from L5-S1. Subsequently, he developed lower extremity weakness bilaterally and had continuous drainage. On 07/02/18 a lumbar seroma was found and on 07/03/18 he underwent closure of lumbar seroma. He presented to the ED yesterday from [facility] with the above stated complaints. At the time of my a ssessment this morning he states that his headache is significantly worse as well is the back pain. He notes tenderness along the surgical site. Given recent surgery and presentation there is certainly concern for meningitis as a complication of surgery. Workup in the ED revealed leukocytosis and repeat CBC shows WBC of 18.5 but his neutrophil dominant at 17. Also, he was noted to have an elevated lactic acid of 2.[address] of the abdomen and pelvis revealed 2 fluid collections in the lumbar spine with concern for abscess. He has been on vancomycin and Zosyn during this admission. Past Med Surg Social Fam HX - Past Medical History Medical history: asthma, other Additional medical history: lumbar disc herniation, lumbar radiculopathy. tobacco dependency. depression Psychiatric history: no psych history - Past Surgical History Surgical History: other Additional surgical history: tubes placed in side as infant due to being premature - Social History Smoking Status: Current every day smoker Smokeless Tobacco Status: No Alcohol use: rarely Drug use: none - Family History Father Family Member Ethnicity: Non- Living Status: Still Living Hx Family Cardiac Disorders: No Hx Family Respiratory Disorders: No Hx Family Cancer: No Hx Family GI Disorders: No Hx Family Endocrine Disorder: No Hx Family Neuromuscular Disorders: No Hx Family Neurologic Disorders: No Hx Family HEENT Disorders: No Hx Family Autoimmune Disorders: No (psoriasis) Medications and Allergies Gabapentin [Neurontin] 400 mg PO TID 06/23/18 [History] Meloxicam 7.5 mg PO BID PRN 06/23/18 [History] Allergy/AdvReac Type Severity Reaction Status Date / Time shellfish derived Allergy Anaphylaxis Verified 06/23/18 09:26 All Systems: The remainder of the systems were reviewed and are negative Review of Systems: REVIEW OF SYSTEMS GENERAL: Positive-fevers, chills, fatigue, NEUROLOGIC: Positive-headache, bilateral leg weakness Negative-urinary incontinence or bowel incontinence, HEENT: Negative for neck stiffness MUSCULOSKELETAL: Positive-loss of strength bilateral legs, decreased activity tolerance, pain along lumbar spine positive back pain INTEGUMENTARY: Positive for erythema along surgical incisions with purulent drainage Physical Examination - Vital Signs Vital Signs: Initial Vital Signs Temp Pulse Resp BP Pulse Ox 99.6 F 98 12 105/65 96 07/21/18 04:04 07/21/18 04:04 07/21/18 04:04 07/21/18 04:04 07/21/18 04:04 - Exam Exam: Examination: Exam limited by patient's per dissipation General Examination: *CONSTITUTIONAL: Alert and oriented x3, no acute distress *GENERAL APPEARANCE OF PATIENT appears healthy and well groomed *EYES: pupils equal, round, reactive to light and accommodation, conjunctiva clear *CARDIOVASCULAR no peripheral edema, distal temperature normal, dorsalis pedis pulses normal. See vital signs Musculoskeletal: *GAIT AND STATION deferred *ASSESSMENT OF MUSCLE STRENGTH IN THE UPPER AND LOWER EXTREMITIES patient refused *MUSCLE TONE IN THE UPPER AND LOWER EXTREMITIES patient refused Neurological: *ORIENTATION to person, situation, time and place *RECURRENT AND REMOTE MEMORY intact *ATTENTION AND CONCENTRATION are normal *LANGUAGE FUNCTION no significant aphasia or dysarthia was noted. *FUND OF KNOWLEDGE aware of current events, past history, vocabulary *MENTAL attention span and concentration are altered, requires redirection *CN II optic fundi were normal, no papilledema noted. *CN III,IV, PERRLA extraocular eye movements were full, no nystagmus and no ptosis noted. *CN V shows normal sensation and jaw opens symmetrically. *CN VII shows normal facial movement symmetrically, upper and lower bilaterally. *CN VIII shows no significant hearing loss on exam *CN IX,,X palate elevated symmetrically *CN XI normal strength in the sternocleidomastoid muscles, symmetrical shoulder shrugging. *CN XII tongue protruded in the midline, with normal strength and movement. *SENSORY EXAMINATION light touch intact but he is reporting decreased sensation in bilateral legs *REFLEXES: Noncompliant with DTR exam; would not let me assess *PAIN LEVEL 10/10 in both lumbar spine and head Results - Laboratory Findings CBC and BMP: 07/21/18 06:31 07/21/18 06:31 Abnormal lab findings: Abnormal lab results WBC 18.5 K/mcL (4.3-11.1) H 07/21/18 06:31 MCHC 35.6 g/dL (31.6-35.5) H 07/21/18 06:31 RDW 11.1 % (11.5-14.5) L 07/21/18 06:31 17.0 K/mcL (1.6-8.9) H 07/21/18 06:31 0.4 K/mcL (0.6-4.6) L 07/21/18 06:31 PT 15.9 Seconds (9.4-12.1) H 07/21/18 06:31 Sodium 131 mEq/L (136-145) L 07/21/18 06:31 Glucose 218 mg/dL (70-105) H 07/21/18 06:31 279 (280-300) L 07/21/18 06:31 Phosphorus 1.9 mg/dL (2.7-4.5) L 07/21/18 06:31 1.4 mg/dL (0.3-1.0) H 07/21/18 06:31 AST 10 Units/L (13-39) L 07/21/18 06:31 - Diagnostic Findings Additional findings: CT report reviewed showing concerns for lumbar spinal abscesses 2 Consult Discharge Plan - Plan Referrals: Ruma Jones CNP [Primary Care Provider] -
[2018-07-21] MEDS: Acetaminophen 325 MG TABLET PO PRN ×2 (11:38→16:56)
[2018-07-21] MEDS: Ondansetron 4 MG/2 ML VIAL IVP PRN (16:58)
[2018-07-21] MEDS ORDERED: *HR* OxyCODONE Oral Soln 5 MG/5 ML UD.LIQ PO ONE (18:29)
[2018-07-21] MEDS: Ringers Solution, Lactated 1,000 ML IVC SCH (18:44)
[2018-07-22] MEDS: Acyclovir 750 MG in D5% in Water 250 ML IVPB SCH ×2 (00:27→06:33)
[2018-07-22] MEDS: Dexamethasone 10 MG/ML VIAL IVP SCH ×3 (00:35→12:12)
[2018-07-22] MEDS ORDERED: OXYCODONE Oral CONC 10 MG/0.5 ML ORAL.SYG SL ONE (00:58)
[2018-07-22] MEDS: Ondansetron 4 MG/2 ML VIAL IVP PRN (01:22)
[2018-07-22] MEDS: Ringers Solution, Lactated 1,000 ML IVC SCH (01:38)
[2018-07-22 02:19] LABS: Basophils % 0.1 %; Hematocrit 38.1 % (37.5-50.1); Hemoglobin 13.8 g/dL (12.9-16.9); Immature Granulocytes % 1.2 % (0-4); Lymphocytes # 0.5 K/mcL (0.6-4.6); Mean Corpuscular HGB Conc 36.2 g/dL (31.6-35.5); Mean Corpuscular Hemoglobin 31.1 pg (28.0-33.3); Mean Corpuscular Volume 85.8 fL (83.0-100.0); Mean Platelet Volume 10.3 fL (9.4-12.4); Monocytes # 0.7 K/mcL (0.0-1.3); Monocytes % 3.9 %; Platelet Count 169 K/mcL (140-400); Red Blood Count 4.44 M/mcL (4.19-5.50); Red Cell Distribution Width 10.9 % (11.5-14.5); Segmented Neutrophils % 91.8 %
[2018-07-22 02:39] LABS: Alanine Aminotransferase 8 Units/L (7-52); Albumin/Globulin Ratio 1.4 (1.1-2.2); Alkaline Phosphatase 67 Units/L (34-104); Aspartate Amino Transferase 9 Units/L (13-39); BUN/Creatinine Ratio 17 (6-26); Bilirubin,Total 0.6 mg/dL (0.3-1.0); Blood Urea Nitrogen 17 mg/dL (6-20); Calcium 9.4 mg/dL (8.6-10.3); Carbon Dioxide 23 mEq/L (23-29); Chloride 103 mEq/L (98-107); Globulin 2.9 g/dL (2.4-3.5); Glucose 182 mg/dL (70-105); Osmolality,Calculated 288 (280-300); Potassium 3.3 mEq/L (3.5-5.1); Sodium 136 mEq/L (136-145); Total Protein 6.9 g/dL (6.4-8.9); eGFR For Non-African Americans > 60 (> 60)
[2018-07-22] MEDS ORDERED: Acetaminophen IV 500 MG/50 ML INFUS..BTL IVPB ONE (06:46)
[2018-07-22] MEDS: cefTRIAXone 2,000 MG in Water for inj. (sterile) 20 ML 20 ML IVP SCH (08:32)
[2018-07-22] MEDS ORDERED: Ketorolac 30 MG/ML VIAL IVP PRN (09:18)
--- NOTE | 2018-07-22 09:40 | Event Note ---
Date of Encounter: 07/22/18 Time of Encounter: 08:30 Made aware by nursing staff of patient not yet transferring. Patient clinically worsening Discussed with Dr. Duckworth and nursing staff- Neurosurgery centers with no beds and no estimated time of availability. Discussed with Dr. Baker - significant concern for patient continued decline prior to transfer - proceed with emergent irrigation and debridement with washout. Surgery schedule updated. Nursing staff instructed to immediately prep patient for surgery. Patient has been NPO since 07/21. Dr. Baker to consent patient prior to surgery.
--- NOTE | 2018-07-22 09:45 | Anesthesia Evaluation PreOp ---
Date of Encounter: 07/22/18 Time of Encounter: 09:43 - Past History Planned Operation: I & D Lumbar Pulmonary History: Smoker, Pack/yr (1/2 ppd), Asthma TRAINING LEAD History: Other (possible meningitis, sepsis) Other Medical History: Denies Any Significant HX Anesthesia History: No Prior Anesthetic Complications, Past Anesthesia ( microdiscectomy L5-S1, Closure Lumbar Seroma) Alcohol Use: rarely Drug use: none Medications and Allergies Ibuprofen 800 mg PO TID PRN 07/21/18 [History] Oxycodone HCl 5 mg PO Q6H PRN 07/21/18 [History] Allergy/AdvReac Type Severity Reaction Status Date / Time shellfish derived Allergy Anaphylaxis Verified 06/23/18 09:26 - Meds/Allergy Pre-op Review Medications Reviewed: Yes Allergies Reviewed: Yes Beta Blockers on Current Med List: No Anesthesia Results - Labs 07/22/18 01:59 07/22/18 10:13 Anesthesia Exam Vital Signs/O2 Sat, Most Current Temp Pulse Resp BP Pulse Ox 102.2 F H 104 16 108/58 98 07/22/18 07:18 07/22/18 07:18 07/22/18 07:18 07/22/18 07:18 07/22/18 07:18 NPO (# of Hours): > 8 hrs Pain Scale: 0 Pain Scale Used: Numeric (1 - 10) - HEENT Pupil (Motor): Pupils equal, EOMI Mallampati: II Teeth: Normal Oral Opening: Greater than 3 - TRAINING LEAD LOC: Oriented TRAINING LEAD Motor: Normal RUE, Normal LUE, Normal RLE, Normal LLE, Normal Face TRAINING LEAD Sensory: Normal: RUE, LUE, RLE, LLE, Face - Cardiac Rhythm: Regular Murmur: None JVD: No Carotid Bruit: No - Pulmonary Breath Sounds: bilateral Clear Respiratory Effort: Symmetrical Anesthesia Assess/Plan ASA Score: 3 Level of consciousness: Cooperative Anesthetic Plan: General Autologous Blood: Yes Monitoring Plan: Standard Monitors Recovery Plan: PACU
[2018-07-22 11:09] LABS: BUN/Creatinine Ratio 18 (6-26); Blood Urea Nitrogen 17 mg/dL (6-20); Calcium 9.4 mg/dL (8.6-10.3); Carbon Dioxide 24 mEq/L (23-29); Chloride 102 mEq/L (98-107); Glucose 154 mg/dL (70-105); Osmolality,Calculated 287 (280-300); Potassium 3.6 mEq/L (3.5-5.1); Sodium 136 mEq/L (136-145); eGFR For Non-African Americans > 60 (> 60)
[2018-07-22] MEDS ORDERED: OXYCODONE Oral CONC 10 MG/0.5 ML ORAL.SYG SL PRN (11:19)
[2018-07-22] MEDS ORDERED: Ampicillin 2 GM in 0.9 % Sodium Chloride Mini Bag 100 ML IVPB SCH (12:00)
--- NOTE | 2018-07-22 12:16 | Event Note ---
Date of Encounter: 07/22/18 Time of Encounter: 11:45 S/w Dr. Baker Per Dr. Baker Patient has been accepted with awaiting bed from Dr. Dowell at [facility]. Dr. Baker is aware of [facility] conditional acceptance if proceed with washout. Dr. Baker would like to await to hear from Dr. Dowell within the next appx 1 hour prior to proceeding with surgical intervention. Await return call from [facility] per Dr. Baker. Patient's mother made aware.
[2018-07-22] MEDS ORDERED: *HR* Succinylcholine 200 MG/10 ML VIAL IVP ONE (12:32)
[2018-07-22] MEDS ORDERED: Lidocaine -MPF 2% 2 ML VIAL ONE (12:32)
[2018-07-22] MEDS ORDERED: *HR* FentaNYL (PF) 100 MCG/2 ML VIAL ONE (12:32)
[2018-07-22] MEDS ORDERED: Ondansetron 4 MG/2 ML VIAL ONE (12:32)
[2018-07-22] MEDS ORDERED: *HR* Propofol 200 MG/20 ML VIAL IVP ONE (12:32)
[2018-07-22] MEDS ORDERED: Dexamethasone 4 MG/ML VIAL ONE (12:32)
[2018-07-22] MEDS ORDERED: *HR* Rocuronium Bromide 50 MG/5 ML VIAL ONE (12:32)
[2018-07-22] MEDS ORDERED: *HR* Midazolam HCl 2 MG/2 ML VIAL ONE (12:32)
[2018-07-22] MEDS ORDERED: Neostigmine Methylsulfate 3 MG/3 ML SYRINGE ONE (12:32)
--- NOTE | 2018-07-22 12:50 | Spine Progress Note ---
Date of Encounter: 07/22/18 Time of Encounter: 12:47 Subjective Principal diagnosis: Infected seroma, status post microdiscectomy Interval history: Had a long discussion with patient and mother whose in room. Briefly, he had a microdiscectomy approximately one month ago complicated by seroma. This required irrigation and debridement and closure a couple weeks ago. He was seen in culture ER with worsening headache and a white count with left shift and was sent to [facility] for further management. He now says septic parameters, tachycardia, febrile. After long discussions with neurosurgeon at [facility] as well as with our hospitalist staff they have accepted patient for transfer but have no isolation bed availability at this time. We have also been in contact with the [facility] who would like irrigation and debridement at our institution prior to any transfer of care. I had a long discussion with the mother and patient regarding his worsening clinical condition despite antibiotic therapy and due to his clinical course we plan irrigation and debridement and closure of infected seroma. He may need further management at an outside institution which may include lumbar drains. He is currently on triple antibiotics per the hospitalist service. Risks benefits possible competitions and alternatives were discussed and the patient would like to proceed. Objective Vital signs: Vital Signs Temp Pulse Resp BP Pulse Ox 07/22/18 10:00 98.2 F 92 20 113/57 100 07/22/18 07:18 102.2 F H 104 16 108/58 98 07/22/18 03:59 100.8 F H 65 17 109/61 99 07/21/18 23:37 98.1 F 91 17 116/76 92 07/21/18 19:13 98.8 F 98 17 110/66 98 07/21/18 15:15 99.1 F 94 18 121/75 97 07/21/18 13:13 97.2 F L 96 18 101/62 95 Intake and Output 07/21/18 07/22/18 07/22/18 23:59 07:59 15:59 Intake Total 515 / 800 1585 / 1870 285 / 1870 Output Total 300 / 850 360 / 360 Balance 215 / -50 1225 / 1510 285 / 1510 Intake: IV Fluids 515 / 800 1585 / 1870 285 / 1870 Lactated Ringers 1,000 ML @ 125 1000 / 1000 mls/hr IVC .Q8H [facility] Rx#: [id number] Rocephin 2,000 MG In Water for 20 / 40 inj. (sterile) 20 ML @ 600 mls/ hr IVP BID [facility] Rx#:[id number] Ofirmev 1,000 mg/100 ml 500 mg 50 / 50 In 50 ml @ 200 mls/hr IVPB ONCE ONE Rx#:[id number] Zovirax 750 MG In Dextrose 5% 265 / 530 265 / 530 265 / 530 250 ML @ 250 mls/hr IVPB Q8H [facility] Rx#:[id number] Vancocin 1,250 MG In 0.9 % 250 / 250 250 / 250 Sodium Chloride 250 ML @ 167 mls/hr IVPB Q12H [facility] Rx#: [id number] Output: Urine 300 / 850 200 / 200 Emesis 160 / 160 - Labs CBC & BMP: 07/22/18 01:59 07/22/18 10:13 Labs: Abnormal lab results WBC 17.5 K/mcL (4.3-11.1) H 07/22/18 01:59 MCHC 36.2 g/dL (31.6-35.5) H 07/22/18 01:59 RDW 10.9 % (11.5-14.5) L 07/22/18 01:59 16.0 K/mcL (1.6-8.9) H 07/22/18 01:59 0.5 K/mcL (0.6-4.6) L 07/22/18 01:59 PT 15.9 Seconds (9.4-12.1) H 07/21/18 06:31 Sodium 131 mEq/L (136-145) L 07/21/18 06:31 Potassium 3.3 mEq/L (3.5-5.1) L 07/22/18 01:59 Glucose 154 mg/dL (70-105) H 07/22/18 10:13 279 (280-300) L 07/21/18 06:31 Phosphorus 1.9 mg/dL (2.7-4.5) L 07/21/18 06:31 1.4 mg/dL (0.3-1.0) H 07/21/18 06:31 AST 9 Units/L (13-39) L 07/22/18 01:59 Consult Discharge Plan - Plan Referrals: Ruma Jones, [employer] [Primary Care Provider] -
[2018-07-22] MEDS ORDERED: Vancomycin 1,000 MG VIAL ONE (13:06)
[2018-07-22] MEDS ORDERED: Bacitracin 50,000 UNIT, Polymyxin B Sulfate 500,000 UNIT, Sodium Chloride IRRigation 1,... IR ONE (13:15)
--- NOTE | 2018-07-22 13:21 | Infectious Disease Consult ---
Infectious Disease-Consult - Encounter Date/Time Date of Encounter: 07/22/18 Time of Encounter: 13:21 - Data of Consult Patient: new to practice Reason for consult: Surgical site infection Consult date: 07/22/18 Requesting Physician: Hillayr Duckworth MD Primary Care Provider: Ruma Jones, - [facility] HPI: Mr. Arndt is a 33-year-old male with a past medical history of lumbar spine herniation status post L5-S1 microdiscectomy 06/23/18, lumbar radiculopathy, and depression. The patient was admitted to the hospital 07/21/18 for surgical site infection and meningitis. We are consulted 07/22/18 for further workup and treatment recommendations for meningitis and surgical site infection. Briefly, the patient is a 33-year-old male with a past medical history as stated above. The patient underwent an L5-S1 microdiscectomy 06/23/18. He was discharged home postoperatively, but came back to the ER 07/04/18 with headache, blurred vision, and wound drainage. He underwent an I&D of a seroma. The cultures were obtained. He was seen in the orthopedics office last Saturday and had sutures removed. He was doing well until when he developed headache, nausea, neck pain, and wound dehiscence with purulent drainage. He presented to hold her emergency department on Saturday. He had leukocytosis and lactic acidosis. CT of the abdomen and pelvis showed 2 fluid collections concerning for abscess. Blood cultures were obtained 2 sets are no growth to date. He was started on vancomycin and Zosyn and transferred here for further evaluation. Since admission here, the patient has had fevers and leukocytosis. He was evaluated by orthopedics who originally planned to transfer the patient to a facility where neurosurgery was available, but no beds were available. He has been eating by neurology who recommended empiric treatment for meningitis and transfer to tertiary care center. Today, the patient's leukocytosis is improved. He continues to have fevers with a MAXIMUM TEMPERATURE of 102.2. The orthopedics team is planning to perform an I&D/washout later today. Currently, he is on acyclovir, ampicillin, Rocephin, and vancomycin. We have been asked to evaluate and make further recommendations. During my exam today, the patient's review of systems is somewhat limited due to the fact that he is obviously in a significant amount of pain and distress. He endorses a history as stated above. Reports fevers with chills and rigors at home states the headache originally started posteriorly, but is now mainly in the front of his head and behind his eyes. Reports photophobia, nausea, and vo miting. States he feels generally weak and very tired. Denies blurred vision. Reports pain at the surgical site and report purulent drainage. Denies abdominal pain or urinary complaints. Complains of some numbness and tingling to the left lower extremity. Denies oral thrush or skin rashes. The patient lives at home with his and children. 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 He smokes a pack of cigarettes per day. Denies alcohol or illicit drug use. Denies chronic infectious diseases. Denies any recent travel outside the [facility]. Denies any exposure to water except bathing. - ROS Review of Systems: All systems reviewed and no additional remarkable complaints except as stated. - Results CBC & Chem 7: 07/22/18 01:59 07/22/18 10:13 - Exam Vitals: Temp Pulse Resp BP Pulse Ox 98.2 F 92 20 113/57 100 07/22/18 10:00 07/22/18 10:00 07/22/18 10:00 07/22/18 10:00 07/22/18 10:00 Exam: Head: Atraumatic, normal inspection, normocephalic. Eye: EOMI, PERRLA, no scleral icterus noted. ENT: Mucous membranes moist. No odontogenic infection noted. Neck: Normal inspection, a pole, nontender. Respiratory: Clear to auscultation. No rales, respiratory distress, rhonchi, or wheezes noted. Cardiovascular: Regular rate and rhythm, S1 and S2 audible. No murmurs, rubs, or gallops. GI: Soft, nondistended, normal bowel sounds. Extremities:No joint swelling, pedal edema, or tenderness noted. Back: Site noted to the lumbar spinal small amount of yellow purulent drainage noted. Tenderness noted with palpation. No surrounding warmth or erythema. Neurological: Alert, oriented 3, no focal deficits. Psychiatric: normal affect, normal mood. Skin: Dry, intact, warm. Normal color. No rashes. Ibuprofen 800 mg PO TID PRN 07/21/18 [History] Oxycodone HCl 5 mg PO Q6H PRN 07/21/18 [History] Allergy/AdvReac Type Severity Reaction Status Date / Time shellfish derived Allergy Anaphylaxis Verified 06/23/18 09:26 - Assessment and Plan (1) Sepsis Status: Acute The patient has two SIRS criteria. Likely secondary to surgical site infection and meningitis. WBC improved, but still elevated. Tmax 102.2. Blood cultures drawn 07/20/18 at [facility] are NGTD x 2 sets. Qualifiers: Qualified Code(s): A41.9 - Sepsis, unspecified organism SNOMED Code(s): 86868362 (2) Surgical site infection Status: Acute Causative organism: Unclear. Etiology: Unclear. CT of the abdomen and pelvis 07/20/18 at [facility] revealed fluid collections x2 concerning for abscess. Ortho-spine team consulted. Planning operative debridement today. Currently on Vanc and rocephin. SNOMED Code(s): 09616204, 943574189 (3) Meningitis Status: Acute Causative organism: Unclear. Likely secondary to recent surgical procedure. Neurology consulted and following. LP not done. [facility]. Currently on Rocephin, acyclovir, ampicillin, and Vanc. SNOMED Code(s): 2179167 (4) Headache Status: Acute Likely secondary to meningitis and sepsis. Consider CT head, but will defer to neurology. Pain management per the primary team. Qualifiers: Headache type: unspecified Headache chronicity pattern: acute headache Intractability: intractable Qualified Code(s): R51 - Headache SNOMED Code(s): 03595715 (5) Nausea & vomiting Status: Acute Likely secondary to headache. Symptomatic management per the primary team. Qualifiers: Vomiting type: unspecified Vomiting Intractability: unspecified Qualified Code(s): R11.2 - Nausea with vomiting, unspecified SNOMED Code(s): 42053853 (6) Status post lumbar microdiscectomy Status: Acute Status post L5-S1 microdiscectomy 06/23/[address] Baker. SNOMED Code(s): 881086681, 713021997 - Recommendations Recommendations: Await blood cultures drawn at [facility]. Repeat blood cultures x 2 now. Check ESR and CRP. Recommend LP. Send CSF for cell count with differential, protein, glucose, and gram stain/culture (aerobic, anaerobic). Discontinue ampicillin. Discontinue Rocephin. Start cefepime 2 grams IV Q8H. Start flagyl 500mg IV TID. Continue Vancomycin IV. Pharmacy to dose. Goal trough ~15. Continue acyclovir 10mg/kg IV Q8H. Duration of treatment depends on the clinical picture. Monitor renal function and for drug toxicity and dose-adjust antibiotics. No need for droplet precautions at this point. Past Med Surg Social Fam HX - Past Medical History Medical history: asthma, other Additional medical history: lumbar disc herniation, lumbar radiculopathy. tobacco dependency. depression Psychiatric history: no psych history - Past Surgical History Surgical History: other Additional surgical history: tubes placed in side as due to being premature - Social History Smoking Status: Current every day smoker Smokeless Tobacco Status: No Alcohol use: rarely Drug use: none - Family History Father Family Member Ethnicity: Non- Living Status: Still Living Hx Family Cardiac Disorders: No Hx Family Respiratory Disorders: No Hx Family Cancer: No Hx Family GI Disorders: No Hx Family Endocrine Disorder: No Hx Family Neuromuscular Disorders: No Hx Family Neurologic Disorders: No Hx Family HEENT Disorders: No Hx Family Autoimmune Disorders: No (psoriasis) Consult Discharge Plan - Plan Referrals: Ruma Jones CNP [Primary Care Provider] - - Attending Attestation I have personally performed a face to face evaluation on this patient. I have reviewed and agree with the care plan. History and Exam by me shows: This is an addendum to original report dictated by Sara Medeiros CNP. Please refer to Sara's note for full details. Patient is a 33-year-old gentleman who underwent an L5-S1 microdiscectomy 06/23/2018 came back on 07/04/2018 with adequate vision wound drainage. Patient was taken to surgery at I&D for what was called then a seroma. No Intra-Op cultures were obtained. Patient then had follow-up as an outpatient and had purulent drainage coming out of from his surgical wound and had wound dehiscence. Patient was transferred to [place] for further evaluation and was started on Canasa vancomycin and Zosyn. Patient had meningitis like picture. Patient was being transferred to [facility] represented have a bed so patient was taken for another washout. Currently patient laying in bed status post surgery is awake alert oriented his next Dificid significantly better. Mother and [id number] at bedside. They tell me that the patient is significantly better since when he came in. Intra- Op cultures are pending. Assessment and plan: Meningitis Surgical wound infection Sepsis Recommendations Continue vancomycin Stop Rocephin and start cefepime Start Flagyl Await Intra-Op cultures Patient being transferred to [facility] Await cultures to finalize Monitor labs and for drug toxicity Goal vancomycin trough 15-20
[2018-07-22] MEDS ORDERED: *HR* Labetalol 20 MG/4 ML SYRINGE IVP PRN (13:22)
[2018-07-22] MEDS ORDERED: *HR* Promethazine 25 MG/ML VIAL IVP PRN (13:22)
[2018-07-22] MEDS ORDERED: *HR* HYDROmorphone (PF) 1 MG/ML SYRINGE IVP PRN (13:22)
[2018-07-22] MEDS ORDERED: *HR* OxyCODONE Immed Rel 5 MG TABLET PO PRN (13:22)
[2018-07-22] MEDS ORDERED: Ondansetron 4 MG/2 ML VIAL IVP ONE (13:22)
[2018-07-22] MEDS ORDERED: Albuterol 2.5 MG/3 ML NEBULIZER IH ONE (13:22)
[2018-07-22] MEDS ORDERED: *HR* HYDROMORPHONE 2 MG/ML VIAL ONE (14:21)
--- NOTE | 2018-07-22 14:24 | Internal Med Progress Note ---
<Hillary Duckworth - Last Filed: 07/22/18 14:32> Hospitalist Progress Note - Encounter Date of Encounter: 07/22/18 Time of Encounter: 10:10 - Exam Vitals: Temp Pulse Resp BP Pulse Ox 98.2 F 92 20 113/57 100 07/22/18 10:00 07/22/18 10:00 07/22/18 10:00 07/22/18 10:00 07/22/18 10:00 - Assessment and Plan (1) Meningitis Current Visit: Yes Status: Acute (2) History of recent surgery Current Visit: Yes Status: Acute (3) Nausea & vomiting Current Visit: Yes Status: Acute - Time Spent with Patient Total time spent is greater than 50% in coordination of care (as documented) at patient's floor/unit and/or counseling patient: Internal Medicine: Result - Labs CBC & Chem 7: 07/22/18 01:59 07/22/18 10:13 Labs: Short CBC 07/22/18 Range/Units 01:59 WBC 17.5 H (4.3-11.1) K/mcL Hgb 13.8 (12.9-16.9) g/dL Hct 38.1 (37.5-50.1) % Plt Count 169 (140-400) K/mcL Neutrophils # 16.0 H (1.6-8.9) K/mcL BMP 07/22/18 07/22/18 01:59 10:13 Sodium 136 136 Potassium 3.3 L 3.6 Chloride 103 102 Carbon Dioxide 23 24 BUN 17 17 Creatinine 1.01 0.92 Glucose 182 H 154 H Calcium 9.4 9.4 Liver Function 07/22/18 Range/Units 01:59 Total Bilirubin 0.6 (0.3-1.0) mg/dL AST 9 L (13-39) Units/L ALT 8 (7-52) Units/L Alkaline Phosphatase 67 (34-104) Units/L Albumin 4.0 (3.5-5.7) g/dL - ABG Interpretation ABG results: PT/INR, D-dimer PT 15.9 Seconds (9.4-12.1) H 07/21/18 06:31 Consult Discharge Plan - Plan Referrals: Ruma Jones, [employer] [employer] [Primary Care Provider] - - Attending Attestation I saw evaluated and examined this patient and my medical decision-making was reviewed with the Resident Physician, Jaya Roberson. I agree with the documented findings, disposition and treatment plan as described except to any changes set forth below. We independently had [id number] contact with the patient. Patient developed fever this morning with temperature of 102.2. Continues to have severe headache. Headache does not really with position the patient is in. Denies has some nausea. No abdominal pain. Pain also in his back at recent surgical site and site of possible abscess. General: Patient is alert, moderate distress, oriented x 3 Eyes: Patient has photophobia ENT: Nuchal rigidity present Respiratory: Good respiratory effort. Normal breath sounds. No wheezing or crackles. Cardiovascular: Regular rate and rhythm. s1 and s2 normal No clicks, rubs, gallops, or murmurs. No pedal edema Abdomen: Abdomen is soft, nontender. Bowel sounds are present Musculoskeletal: Did not examine today due to significant pain and tenderness Skin: warm, dry, intact. Neuro: Alert oriented x 3 normal cranial nerves, no focal deficits, patient has photophobia nuchal rigidity. Postsurgical meningitis: Patient continues to decline despite broad-spectrum antibiotics and steroid use. Patient is also on acyclovir. Consult infectious disease today. Had multiple discussions with different facilities and with Dr. Baker. Trying to get patient transferred but [facility] does not have a bed available. Patient has been tentatively accepted at [facility]. Dr. Baker plans to take the patient required today for washout. Patient remains at very high risk for complications. WBC count slightly improved at 17.5. Sepsis related to meningitis: Continue IV antibiotics. Follow infectious disease recommendations. Intraoperative samples will be obtained today and we will follow culture results. DVT prophylaxis with only SCDs as patient needs spine surgery. <Jaya Roberson - Last Filed: 07/22/18 16:48> Hospitalist Progress Note - Encounter Date of Encounter: 07/22/18 - Subjective Interval History: The patient is resting in bed at time of examination. He continues to have a very severe headache and says that he is feeling terrible. Overnight has had continued to feel worse and he did have severe fevers overnight. He apparently also continue to have worsening drainage overnight from his surgical wound. He was supposed to be discharged and transferred to [facility] however no bed became avail able overnight and he remained while waiting. - Exam Vitals: Temp Pulse Resp BP Pulse Ox 98.2 F 92 20 113/57 100 07/22/18 10:00 07/22/18 10:00 07/22/18 10:00 07/22/18 10:00 07/22/18 10:00 Exam: Gen.: Vitals noted. In no acute distress. Alert, awake and oriented * 3 [address], place, and time HEENT: oropharynx clear, Normocephalic, atraumatic Cardiac: RRR, no murmur, +S1/S2, No BLE edema Pulmonary: CTA bilaterally, no wheezes, rales or rhonchi, equal chest expansion, unlabored breathing Skin: warm, non-tender. Did not examine surgical site this day - Assessment and Plan (1) Meningitis Current Visit: Yes Status: Acute Assessment and Plan: Meningitis is postsurgical complication following L5-S1 microdiscectomy Patient had Tmax 102.5, rapid heart rate, respirations 20 with severe headache and photophobia No LP was done as the patient was believed to be transferring to [facility] earlier in the day yesterday however no bed became available The patient has been on in. Acyclovir, rocephin, vancomycin and dexamethasone. Added ampicillin to cover listeria Consult to infectious disease as patient may be waiting for bed at [facility] for longer than anticipated The patient will go for washout with Dr. Doshi in OR today. (2) History of recent surgery Current Visit: Yes Status: Acute Assessment and Plan: Recent lumbar microdiscectomy followed by lumbar spine seroma decompression (3) Nausea & vomiting Current Visit: Yes Status: Acute Assessment and Plan: Control pain and nausea with PRN meds as needed - Time Spent with Patient Total time spent is greater than 50% in coordination of care (as documented) at patient's floor/unit and/or counseling patient: Internal Medicine: Result - Labs CBC & Chem 7: 07/22/18 01:59 07/22/18 10:13 Labs: Short CBC 07/22/18 Range/Units 01:59 WBC 17.5 H (4.3-11.1) K/mcL Hgb 13.8 (12.9-16.9) g/dL Hct 38.1 (37.5-50.1) % Plt Count 169 (140-400) K/mcL Neutrophils # 16.0 H (1.6-8.9) K/mcL BMP 07/22/18 07/22/18 01:59 10:13 Sodium 136 136 Potassium 3.3 L 3.6 Chloride 103 102 Carbon Dioxide 23 24 BUN 17 17 Creatinine 1.01 0.92 Glucose 182 H 154 H Calcium 9.4 9.4 Liver Function 07/22/18 Range/Units 01:59 Total Bilirubin 0.6 (0.3-1.0) mg/dL AST 9 L (13-39) Units/L ALT 8 (7-52) Units/L Alkaline Phosphatase 67 (34-104) Units/L Albumin 4.0 (3.5-5.7) g/dL - ABG Interpretation ABG results: PT/INR, D-dimer PT 15.9 Seconds (9.4-12.1) H 07/21/18 06:31 <Hillary Duckworth - Last Filed: 07/22/18 14:32> (3) Nausea & vomiting Qualifiers: Vomiting type: unspecified Vomiting Intractability: unspecified Qualified Code(s): R11.2 - Nausea with vomiting, unspecified <Jaya Roberson - Last Filed: 07/22/18 16:48> (3) Nausea & vomiting Qualifiers: Vomiting type: unspecified Vomiting Intractability: unspecified Qualified Code(s): R11.2 - Nausea with vomiting, unspecified
--- NOTE | 2018-07-22 14:57 | Orthopedic Operative Note ---
Date of procedure: 07/22/18 Pre-op diagnosis: Infected lumbar wound/seroma Post-op diagnosis: same Operation/Findings: Irrigation and debridement, closure lumbar wound/seroma: The patient was brought to the operative theater where he underwent general endotracheal anesthesia. He was given antibiotics prior to the start of the procedure on the hospital floor per the hospitalist staff.. Compression boots and stockings were used for deep vein thrombosis prophylaxis. The patient was placed prone on a Henrry table. The back was prepped and draped in the usual sterile fashion. An incision was marked and centered over previous incision in the midline. There was noted to be seropurulent material which emanated from the wound after the skin incision was made. Cultures were obtained of this lumbar wound superficially and labeled lumbar wound cultures. We deepened the incision to the fascia and there were some superficial and deep regions of tissue which required debridement with Juanito. Seropurulent material was also noted in the deep layers including the region outside the thecal sac. Displaced DuraGen/DuraSeal material was appreciated. No distinct dural rent was appreciated. We copiously irrigated the deep and superficial wound with at least 6 L of vancomycin impregnated normal saline and mechanical massage. we then closed the wound in layers with 1 Vicryl for the fascia, and interrupted 0 Prolene and 2-0 nylons sutures were used for skin closure. Adaptic/bacitracin ointment and sterile dressings were placed over the wound. The patient was turned supine in a hospital bed, and was extubated in the operative theater. All sponge needles and instrument counts were correct at the end of the procedure. The patient tolerated the procedure well without complications. Anesthesia: GETA Surgeon: Jeffry Baker Jr Was there an medical library assistant present: No Estimated blood loss (cc): 90 Specimen: Lumbar wound cultures and deep lumbar wound cultures Condition: stable Disposition: PACU
--- NOTE | 2018-07-22 15:50 | Anesthesia Evaluation Post Op ---
Date of Encounter: 07/22/18 Time of Encounter: 15:50 - Vital Signs Vital Signs: Last Vital Signs Temp 98.2 F 07/22/18 15:30 Pulse 76 07/22/18 15:45 Resp 12 07/22/18 15:45 BP 114/71 07/22/18 15:45 Pulse Ox 95 07/22/18 15:45 - Lungs Lungs: Clear Ascult./Percussion - Airway Airway: Non-obstructed - Cardiovascular Regular Rate - Mental Status Mental Status: Alert & Oriented, Answers Appropriately - Pain Pain Scale: 2 - Nausea Vomiting Nausea Vomiting: Not Present - Hydration Hydration: NPO - Discharge PostOp Status: Transfer Patient to floor
[2018-07-22 16:04] VITALS: BP 117/78
[2018-07-22] MEDS ORDERED: metroNIDAZOLE 500 MG TABLET PO SCH (16:45)
--- NOTE | 2018-07-22 17:37 | Discharge Summary ---
<Jaya Roberson - Last Filed: 07/22/18 17:33> - NOTES TO OUTPATIENT PROVIDER Notes to Outpatient Provider: Pt is POD 0 washout. On Acyclovir, Cefepime, Metronidazole, Vancomycin, Dexamethasone per infectious disease Orders not resulted at time of discharge: Pending orders 07/22/18 13:58 Culture,Anaerobic [RM] Routine Culture,Wound [RM] Routine 07/22/18 13:59 Culture,Anaerobic [RM] Routine Culture,Wound [RM] Routine 07/23/18 00:00 Vancomycin,Trough Timed Date of Encounter: 07/22/18 Time of Encounter: 17:33 - Discharge Diagnosis (1) Meningitis Priority: Primary Status: Acute (2) History of recent surgery Priority: Secondary Status: Acute (3) Nausea & vomiting Priority: Secondary Status: Acute Qualifiers: Vomiting type: unspecified Vomiting Intractability: unspecified Qualified Code(s): R11.2 - Nausea with vomiting, unspecified Hospital course: Mr. Arndt is a 33 year old male with recent history of L5-S1 microdiscectomy on 06/23/18 complicated by lumbar seroma with decompression on 07/04/18 who presented to [facility] ED with headache, nausea, severe back pain running down his legs in the late evening yesterday and was subsequently transferred to [facility] for admission. There is immediate concern for postsurgical meningitis as a complication of surgery. The patient was noted to have purulent drainage and met sepsis criteria with elevated white count, as well as fever, tachycardia and tachypnea. Neurology was consulted for LP which is pending. He was immediately started on broad spectrum antibiotics, antivirals and dexamethasone. Orthopedic surgery was consulted and Dr. Baker recommended that the patient be transferred to [facility] for consultation with neurological surgery, however no beds were immediately available and the patient stayed overnight. Because the patients symptoms worsened and his clinical status appeared to worsen as well, Dr. Baker determined it was appropriate to take the patient to the OR for washout and debridement of the wound, which the patient tolerated without immediate complication. He did obtain some symptomatic relief following the procedure, however the patient continued to have severe headache throughout the day requiring increase in pain regimen. Finally, the patient experienced a drop in blood pressure most likely related to anesthesia which was treated with fluids. A bed has become available for him at [facility] and he will be transferred shortly. Discharge discussed with: patient, family, nurse, social work, case management, systems security consultant - Time Spent with Patient Total time spent providing and/or coordinating discharge services: Time spent: Greater than 30 minutes - Discharge Medications Prescriptions: Continued Ibuprofen 800 mg PO TID PRN PRN Reason: Pain Oxycodone HCl 5 mg PO Q6H PRN PRN Reason: Pain Home Medications: Ibuprofen 800 mg PO TID PRN 07/21/18 [History] Oxycodone HCl 5 mg PO Q6H PRN 07/21/18 [History] Allergies/Adverse Reactions: Allergy/AdvReac Type Severity Reaction Status Date / Time shellfish derived Allergy Anaphylaxis Verified 06/23/18 09:26 Date of admission: 07/22/18 11:57 Primary care physician: Ruma Jones, Consults: 07/21/18 05:21 Consult to Neurology [CONS] Routine Consulting Provider: [facility] Reason for Consult: meninigitis Call Completed: No 07/21/18 06:09 Consult to Orthopedic Surgery [CONS] Routine Consulting Provider: Jeffry Baker Jr Reason for Consult: Possible meningitis post-op infection Call Completed: Yes 07/21/18 08:19 Consult to Infectious Diseases [CONS] Routine Consulting Provider: [facility] Reason for Consult: symptomatic elevated white count Time Notified: 08:20 Call Completed: No Discharging clinician: Jaya Roberson Anticipated date of discharge: 07/22/18 - Constitutional Vitals: Temp Pulse Resp BP Pulse Ox 97.8 F 68 18 117/78 96 07/22/18 16:03 07/22/18 16:03 07/22/18 16:03 07/22/18 16:03 07/22/18 16:03 Exam: Gen.: Vitals noted. In no acute distress. Alert, awake and oriented * [address], and time HEENT: oropharynx clear, Normocephalic, atraumatic Cardiac: RRR, no murmur, +S1/S2, No BLE edema Pulmonary: CTA bilaterally, no wheezes, rales or rhonchi, equal chest expansion, unlabored breathing Skin: warm, non-tender. Did not examine surgical site this day - Patient Status Disposition: Transfer Other Condition: Serious Functional capacity at discharge: bed bound Overall status at discharge: patient is not back to baseline - Discharge Instructions Follow Up With: Ruma Jones, PR[facility] [Primary Care Provider] - - Diet and Activity Activity: increase activity as tolerated, return to work once cleared by your PCP/specialist Diet: regular diet <Hillary Duckworth - Last Filed: 07/22/18 18:01> Orders not resulted at time of discharge: Pending orders 07/22/18 13:59 Culture,Anaerobic [RM] Routine Culture,Anaerobic [RM] Routine Culture,Wound [RM] Routine Culture,Wound [RM] Routine 07/23/18 00:00 Vancomycin,Trough Timed Date of Encounter: 07/22/18 Time of Encounter: 09:50 - Discharge Diagnosis (1) Meningitis Status: Acute (2) History of recent surgery Status: Acute (3) Nausea & vomiting Status: Acute Qualifiers: Vomiting type: unspecified Vomiting Intractability: unspecified Qualified Code(s): R11.2 - Nausea with vomiting, unspecified Hospital course: Mr. Arndt is a 33 year old male Discharge discussed with: systems security consultant - Time Spent with Patient Total time spent providing and/or coordinating discharge services: Time spent: Greater than 30 minutes (55 min) Date of admission: 07/22/18 11:57 Primary care physician: Ruma Jones, Consults: 07/21/18 05:21 Consult to Neurology [CONS] Routine Consulting Provider: [facility] Reason for Consult: meninigitis Call Completed: No 07/21/18 06:09 Consult to Orthopedic Surgery [CONS] Routine Consulting Provider: Jeffry Baker Jr Reason for Consult: Possible meningitis post-op infection Call Completed: Yes 07/21/18 08:19 Consult to Infectious Diseases [CONS] Routine Consulting Provider: [facility] Reason for Consult: symptomatic elevated white count Time Notified: 08:20 Call Completed: No - Constitutional Vitals: Temp Pulse Resp BP Pulse Ox 97.8 F 68 18 117/78 96 07/22/18 16:03 07/22/18 16:03 07/22/18 16:03 07/22/18 16:03 07/22/18 16:03 - Attending Attestation I saw evaluated and examined this patient and my medical decision-making was re viewed with the Resident Physician, Jaya Zamostny. I agree with the documented findings, disposition and treatment plan as described except to any changes set forth below. We independently had [id number] contact with the patient. Patient who recently underwent spine surgery that was complicated by lumbar seroma with decompression who was hospitalized here with suspicion of postsurgical meningitis. He was started on broad-spectrum antibiotics and evaluated by spine surgery today who recommended transfer to tertiary care Center for consultation with neurosurgery. Patient has been accepted at [facility] yesterday but patent could not transfer as there was no bed available. He continued to receive IV antibiotics. This morning his condition appeared to be worsening. He has had worsening fever and worsening pain and headache. As such she was taken to the OR and underwent washout with drainage of purulent fluid. He now has a bed available at a [facility] and will be transferred over tonight.. He will continue to receive IV antibiotics and fluids. On exam, he has photophobia, some nuchal rigidity and a severe headache. S1 and S2 are normal. Breath sounds are normal. Strength normal in his lower extremities.
[2018-07-22] MEDS ORDERED: Aminoglycoside Consult 1 EACH MC ONE (19:23)
[2018-07-23] MEDS ORDERED: Cefepime HCl 2,000 MG in Water for inj. (sterile) 20 ML 20 ML IVP SCH
== END 2018-07-22 19:24 | disposition other institution (70) | DRG 721 ==
LOC: 3NENU → SUATTDRO 03:44 → 3NENU 04:47
PROVIDERS: ADMIT Family Medicine; ATTEND Internal Medicine